=== PATIENT | male | born 1960 | race Caucasian/White ===

== ENCOUNTER 2019-03-24 09:26 | Emergency (ER) | payer BC ==
[2019-03-24 10:13] VITALS: BP 160/100
--- NOTE | 2019-03-24 10:51 | UC ---
Ear Complaint HPI - HPI Summary HPI Summary: Pt with progressive right ear pain x many days. No drainage. no fever chillls. States feels is extends into throat x 2 days. Has taken APAP with mild improvement Pt states feels pain increase in ear with swallowing. no drainage. No trauma Meds reviewed - History of Current Complaint Chief Complaint: UCEar Stated Complaint: RIGHT EAR PAIN Time Seen by Provider: 03/24/19 10:35 Hx Obtained From: Patient Severity Initially: Mild Severity Currently: Mild Pain Intensity: 4 Pain Scale Used: 0-10 Numeric - Allergies/Home Medications Allergies/Adverse Reactions: Allergies Allergy/AdvReac Type Severity Reaction Status Date / Time fentanyl Allergy Severe Anaphylatic Verified 03/24/19 10:14 Shock PMH/Surg Hx/FS Hx/Imm Hx Previously Healthy: Yes - Surgical History Surgical History: Yes Surgery Procedure, Year, and Place: R carpal tunnel surgery 2010, appy, inguinal hernia - Social History Occupation: Employed Full-time Lives: With Family Alcohol Use: Occasionally Substance Use Type: None Smoking Status (MU): Never Smoked Tobacco Review of Systems All Other Systems Reviewed And Are Negative: Yes Constitutional: Positive: Negative ENT: Positive: Ear Ache Respiratory: Positive: Negative Cardiovascular: Positive: Negative Physical Exam - Summary Physical Exam Summary: Vital Signs Reviewed: Yes A+Ox3, no distress Eyes: Conjunctiva Clear, DASIA. EOM intact and full ENT: Hearing grossly normal, right ear with fluid, erythema, left wnl no mastoid pain, no tmj pain turbinates inflammed, mmoist, no dental pain, oral lesions, mild PND uvula midline, no exudate, no erythema Neck: Positive: Supple, + submandibular LA r>L Respiratory: Positive: No respiratory distress, No accessory muscle use + CTA throughout no w/r Cardiovascular: RRR nl s1, s2 no m/r CBT <2 sec abd soft + BS nt/nd no guarding, no distension Musculoskeletal Exam: NEWELL x 4 without difficulty Strength Intact, ROM Intact Neurological: Positive: Alert, + sensation throughout Psychological: Positive: Normal Response To Family Skin: Positive: no rash, no ecchymosis Triage Information Reviewed: Yes Vital Signs: Initial Vital Signs Temp 97.7 F 03/24/19 09:56 Pulse 61 03/24/19 09:56 Resp 18 03/24/19 09:56 BP 160/100 03/24/19 09:56 Pulse Ox 97 03/24/19 09:56 Ear Complaint Course/Dx - Course Course Of Treatment: pt with progressive right ear pain - extending to throat pt with right OM clinically abx motrin/apap flonase return precautions elevated BP - history of similar - recommend f/u with pcp - Differential Dx/Diagnosis Provider Diagnosis: Right otitis media Discharge ED - Sign-Out/Discharge Documenting (check all that apply): Patient Departure All imaging exams completed and their final reports reviewed: No Studies - Discharge Plan Condition: Stable Disposition: HOME Prescriptions: Amoxicillin/Clavulanate TAB* [Augmentin TAB 875*] 875 mg PO BID #20 tab Fluticasone NASAL SPRAY 50MCG* [Flonase NASAL SPRAY 50MCG*] 2 spray BOTH NARES DAILY #1 btl Patient Education Materials: Ear Infection (ED) Referrals: Amy Lora, [employer] [Primary Care Provider] - Additional Instructions: - Take antibiotics as prescribed until gone - Take nasal spray as prescribed - okay to alternate ibuprofen (advil, motrin) and tylenol every 3 hours for pain - Stay well hydrated -drink plenty of non-alcoholic, non-caffinated beverages - You may develop diarrhea from the antibiotics - eating yogurt or taking pro- biotics may help decrease this - if you have increased pain, fever, facial swelling or other concerns it is recommended you contact your doctor, return here or go to the emergency department with further evaluation and treatment - Billing Disposition and Condition Condition: STABLE Disposition: Home
== END 2019-03-24 11:09 | disposition home or self-care (01) ==
LOC: UCCORT 09:26
DX: H66.91 Otitis media, unspecified, right ear (principal); Z88.5 Allergy status to narcotic agent
CPT/HCPCS: 99202; G0463

== ENCOUNTER 2019-04-10 17:28 | Emergency (ER) | payer BC ==
[2019-04-10 18:01] VITALS: BP 167/92
--- NOTE | 2019-04-10 18:24 | ED ---
Throat Pain/Nasal Congestion - HPI Summary HPI Summary: 58 yr old male with the complaint of continued right ear pain. He was seen here on March 24 and Dx with OM. Flonase and Augmentin prescribed. He states the ear got just a little better, but ran out of the Augmentin and now it is hurting more again. Never got fully better. He states the pain is moderate. No fever or chills. No dizziness. No other complaints. The patient states he does have a primary care doctor and that he follows with them regularly for labs and health maintenance. - History of Current Complaint Chief Complaint: UCEar Time Seen by Provider: 04/10/19 18:09 - Allergies/Home Medications Allergies/Adverse Reactions: Allergies Allergy/AdvReac Type Severity Reaction Status Date / Time fentanyl Allergy Severe Anaphylatic Verified 04/10/19 18:02 Shock PMH/Surg Hx/FS Hx/Imm Hx Cardiovascular History: Reports: Hx Hypertension - UNTREATED - Surgical History Surgery Procedure, Year, and Place: R carpal tunnel surgery 2011, appy, inguinal hernia Infectious Disease History: No Infectious Disease History: Denies: Traveled Outside the [place] in Last 30 Days - Family History Known Family History: Positive: None - Social History Occupation: Employed Full-time Alcohol Use: Occasionally Substance Use Type: Reports: None Smoking Status (MU): Former Smoker Have You Smoked in the Last Year: No Review of Systems Constitutional: Negative Positive: Ear Ache All Other Systems Reviewed And Are Negative: Yes Physical Exam Triage Information Reviewed: Yes Vital Signs On Initial Exam: Initial Vitals Temp Pulse Resp BP Pulse Ox 98.5 F 60 18 167/92 100 04/10/19 17:55 04/10/19 17:55 04/10/19 17:55 04/10/19 17:55 04/10/19 17:55 Vital Signs Reviewed: Yes Appearance: Positive: Well-Appearing, No Pain Distress Skin: Positive: Warm, Skin Color Reflects Adequate Perfusion Head/Face: Positive: Normal Head/Face Inspection. Negative: Temporal Artery Tenderness, TMJ Tenderness Eyes: Positive: EOMI ENT: Positive: Hearing grossly normal, TM red - right one is with erythema and retraction of TM., Uvula midline. Negative: Nasal congestion, Muffled voice Neck: Positive: Nontender, No Lymphadenopathy Respiratory/Lung Sounds: Positive: Clear to Auscultation, Breath Sounds Present Cardiovascular: Positive: RRR. Negative: Murmur Abdomen Description: Negative: Distended Musculoskeletal: Positive: Strength/ROM Intact Neurological: Positive: Alert, Oriented to Person Place, Time, CN Intact II-III , Normal Gait, Speech Normal Psychiatric: Positive: Normal Diagnostics - Vital Signs Vital Signs Temp Pulse Resp BP Pulse Ox 04/10/19 17:55 98.5 F 60 18 167/92 100 - Laboratory Lab Statement: Any lab studies that have been ordered have been reviewed, and results considered in the medical decision making process. EENT Course/Dx - Course Course Of Treatment: 58 yr old with right OM. Will prescribe cefdinir this time. He is being referred to ENT for follow up. His BP is up, and he is encouraged to follow up with his PMD for recheck. - Diagnoses Provider Diagnoses: Right otitis media, Hypertension Discharge ED - Sign-Out/Discharge Documenting (check all that apply): Patient Departure All imaging exams completed and their final reports reviewed: No Studies - Discharge Plan Condition: Good Disposition: HOME Prescriptions: Cefdinir cap* [Cefdinir 300 MG cap (NF)] 300 mg PO BID #20 cap Patient Education Materials: Ear Infection (ED), Hypertension (ED) Referrals: Amy Lora NP [Primary Care Provider] - 2 Days - Billing Disposition and Condition Condition: GOOD Disposition: Home
== END 2019-04-10 18:49 | disposition home or self-care (01) ==
LOC: UCCORT 17:28
DX: H66.91 Otitis media, unspecified, right ear (principal); I10 Essential (primary) hypertension; Z88.5 Allergy status to narcotic agent; Z87.891 Personal history of nicotine dependence
CPT/HCPCS: 99212; G0463